=== PATIENT | female | born 1940 | race Two or more races ===

== ENCOUNTER 2025-05-22 19:40 | Emergency (ER) | payer MEDICARE, OTHER ==
[~2025-05-22] VITALS: Ht 157.5 cm; Wt 81.6 kg
[2025-05-22 21:14] LABS: PLATELET COUNT (AUTO) 235 K/uL (150-450); RED BLOOD CELL COUNT(AUTO) 5.10 MIL/uL (4.0-5.2); RED CELL DISTRIBUTION WIDTH 15.6 % (11.5-15.0); WHITE BLOOD COUNT (AUTO) 11.6 K/uL (4.3-11.0)
[2025-05-22 21:25] LABS: APPEARANCE,URINE CLOUDY (CLEAR); BLOOD, URINE 2+ Ery/uL (NEGATIVE); LEUKOCYTE ESTERASE ,URINE 3+ (NEGATIVE); NITRITE, URINE POSITIVE (NEGATIVE); UGLUCOSE NEGATIVE (NEGATIVE)
[2025-05-22] MEDS: IV NS 0.9% 1,000 ML BAG IV ONE (21:29)
[2025-05-22 21:30] VITALS: TEMP 98.7
[2025-05-22 21:30] LABS: CALCIUM, SERUM 9.3 mg/dL (8.5-10.1); CREATININE 1.2 mg/dL (0.6-1.3); SODIUM SERUM 131 mmol/L (136-145); UREA NITROGEN, BLOOD 22 mg/dL (7-18)
[2025-05-22 21:32] LABS: LACTIC ACID 0.9 mmol/L (0.4-2.0)
[2025-05-22 21:34] LABS: ASPARTATE AMINOTRANSFERASE 13 U/L (15-37); TOTAL PROTEIN, SERUM 6.8 g/dL (6.4-8.2)
[2025-05-22 21:40] LABS: ADD URINE CULTURE YES; SQUAMOUS EPITHELIAL CELL,UR 0-2 /HPF (None Seen)
[2025-05-22 22:16] LABS: EOSINOPHILS % (MANUAL) 2 % (0-4); LYMPHOCYTES % (MANUAL) 33 % (16-48); MONOCYTES % (MANUAL) 4 % (0-11.0); NEUTROPHILS % (MANUAL) 61 (42-76)
[2025-05-22 22:17] LABS: PLATELET ESTIMATE ADEQUATE
[2025-05-22] MEDS ORDERED: SULF1TAB48 PO (22:54)
[2025-05-22] MEDS ORDERED: NIRM1TAB10 PO (22:54)
[2025-05-23 01:19] VITALS: BP 123/79; O2SAT 95
== END 2025-05-23 01:20 | disposition home or self-care (01) ==
LOC: ER 19:45
DX: U07.1 COVID-19 (principal); R53.1 Weakness; N39.0 Urinary tract infection, site not specified; I11.9 Hypertensive heart disease without heart failure; R06.2 Wheezing
CPT/HCPCS: 99285; 74176; 96360; 71045; 87426; 93005; 73564; 85027; 80048; 87077; 87086; 83605; 83690; 80076; 85007; 87186; 81001; 36415; 84484; 83880; 82962; J7030